=== PATIENT | male | born 1995 ===

== ENCOUNTER 2016-11-08 01:31 | Emergency (ER) | payer BC ==
[2016-11-08] MEDS ORDERED: LACTATED RINGERS 1,000 ML ONE (01:55)
[2016-11-08 02:08] LABS: ABSOLUTE NEUTROPHIL COUNT 4.1 K/mm3 (1.8-7.7); BASO # 0.1 K/mm3 (0.0-0.2); BASO % 0.8 % (0.2-1.0); EOS # 0.1 (0.0-0.5); EOS % 0.7 % (0.9-2.9); HEMATOCRIT 46.5 % (32.0-52.0); HEMOGLOBIN 16.3 gm/l (14.0-18.0); IMM NEUT% 0.3 % (0-1); LYMPH # 2.8 (1.0-4.8); LYMPH % 36.6 % (15-45); MEAN CORPUSCULAR HEMOGLOBIN 30.1 pg (27.0-31.0); MEAN CORPUSCULAR HGB CONC 35.1 g/dl (33.0-37.0); MEAN PLATELET VOLUME 10.7 fl (7.4-10.4); MONO # 0.6 (0.0-0.8); MONO % 7.5 % (4-12); NEUT % 54.1 % (43-75); PLATELET COUNT 265 K/mm3 (130-400)
[2016-11-08 02:20] LABS: ALB/GLOB RATIO 1.6 (>1.0); ALBUMIN 4.9 gm/dL (3.5-5.7); CALCIUM 9.9 mg/dL (8.6-10.3)
--- NOTE | 2016-11-08 08:52 | RAD ---
CHEST 2 VIEWS HISTORY: Tachycardia. Frontal and lateral chest radiographs dated 11/08/2016. COMPARISON: None. FINDINGS: FOCAL AIRSPACE OPACITY: No gross airspace consolidation. PLEURAL EFFUSION: None. CARDIOMEDIASTINAL SILHOUETTE: Nonenlarged. PNEUMOTHORAX: None identified. OSSEOUS STRUCTURES: No grossly destructive lesions. IMPRESSION: No acute cardiopulmonary process noted.
== END 2016-11-08 04:08 | disposition home or self-care (01) ==
LOC: ED 01:31
DX: R00.0 Tachycardia, unspecified (principal); R07.9 Chest pain, unspecified
CPT/HCPCS: 85025; 82550; 80053; 84484; 71020; 99283 ×2; 96360; 96361; 93005; J7120